=== PATIENT | male | born 1985 | race Caucasian/White ===

== ENCOUNTER 2024-03-05 22:06 | Emergency (ER) | payer BC ==
[~2024-03-05] VITALS: Ht 190.5 cm; Wt 136.1 kg
[2024-03-05] MEDS ORDERED: SODIUM BICARBONATE 4.2 % (NEUT) 5 ML VIAL ONE (23:49)
[2024-03-05] MEDS ORDERED: LIDOCAINE 1%-EPI 1:100,000 20 ML VIAL ONE (23:49)
[2024-03-06] MEDS ORDERED: CEPH500T PO (00:15)
[2024-03-06] MEDS ORDERED: TDAP DIPH,PERTUSS,TET VAC/PF 0.5 ML DISP.SYRIN IM ONE (00:40)
[2024-03-06] MEDS ORDERED: CEphaleXIN 500 MG CAPSULE ONE (00:40)
[2024-03-06] MEDS: CEphaleXIN 500 MG CAPSULE PO ONE (00:43)
[2024-03-06] MEDS: TDAP DIPH,PERTUSS,TET VAC/PF 0.5 ML DISP.SYRIN IM ONE (00:43)
[2024-03-06 01:16] VITALS: BP 122/75; TEMP 97.9; O2SAT 100
== END 2024-03-06 01:00 | disposition home or self-care (01) ==
LOC: ER 22:08
DX: S01.412A Laceration without foreign body of left cheek and temporomandibular area, initial encounter (principal); Z79.899 Other long term (current) drug therapy; Z60.2 Problems related to living alone; Y08.89XA Assault by other specified means, initial encounter; Y93.89 Activity, other specified; Y92.89 Other specified places as the place of occurrence of the external cause; Y99.8 Other external cause status
CPT/HCPCS: 12011; 90471; 90715; 99283; J3490; A4606; A4663